=== PATIENT | female | born 1990 | race Caucasian/White ===

== ENCOUNTER 2020-12-18 14:22 | Inpatient (IN) | payer BC ==
[~2020-12-18] VITALS: Ht 160 cm; Wt 72.7 kg
[2020-12-18] MEDS ORDERED: NEWBORN KIT ONE (18:13)
[2020-12-18] MEDS ORDERED: OXYTOCIN 30U/ 0.9% NaCL 500ML 500 ML ONE (18:13)
[2020-12-18] MEDS: SODIUM CHLORIDE FLUSH 10ML SYR IVF SCH (18:20)
[2020-12-18 18:26] VITALS: BP 113/68
[2020-12-18] MEDS ORDERED: FENTANYL PF 100 MCG/2ML IVPush PRN (18:30)
[2020-12-18] MEDS ORDERED: TERBUTALINE 1 MG/ML, 1ML IVPush PRN (18:30)
[2020-12-18] MEDS ORDERED: TERBUTALINE 1 MG/ML, 1ML SQ PRN (18:30)
[2020-12-18] MEDS ORDERED: FENTANYL PF 100 MCG/2ML IV PRN (18:30)
[2020-12-18] MEDS ORDERED: D5%-LACTATED RINGERS 1,000 ML IV SCH (18:30)
[2020-12-18] MEDS ORDERED: ONDANSETRON 2MG/ML, 2ML IVPush PRN (18:30)
[2020-12-18] MEDS ORDERED: METOCLOPRAMIDE 5 MG/ML, 2ML IVPush PRN (18:30)
[2020-12-18] MEDS ORDERED: OXYTOCIN 30U/ 0.9% NaCL 500ML 500 ML IV ONE (18:30)
[2020-12-18] MEDS ORDERED: SODIUM CITRATE/CITRIC ACID 30 ML UDC PO PRN (18:30)
[2020-12-18] MEDS ORDERED: LACTATED RINGERS 1,000 ML IV SCH (18:30)
[2020-12-18] MEDS ORDERED: CALCIUM CARBONATE 500 MG TAB.CHEW PO PRN (18:30)
[2020-12-18 18:39] LABS: BASOPHILS % (AUTO) 0 % (0-1); EOSINOPHILS % (AUTO) 1 % (1-7); LYMPHOCYTES % (AUTO) 22 % (22-44); MEAN CORPUSCULAR HEMOGLOBIN 31.8 pg (27.0-34.8); MEAN CORPUSCULAR HGB CONC 34.2 g/dL (32.4-35.8); MEAN PLATELET VOLUME 9.1 fL (7.4-10.4); MONOCYTES % (AUTO) 8 % (2-9); NEUTROPHILS % (AUTO) 68 % (42-75); PLATELET COUNT 249 x10^3/uL (130-400); RED BLOOD COUNT 3.69 x10^6/uL (3.82-5.3); RED CELL DISTRIBUTION WIDTH 14.7 % (9.6-15.2)
[2020-12-18] MEDS ORDERED: MISOPROSTOL 200 MCG TABLET ONE (20:43)
[2020-12-18] MEDS ORDERED: LIDOCAINE 1%, 20ML ONE (20:43)
[2020-12-18] MEDS: OXYTOCIN 30U/ 0.9% NaCL 500ML 500 ML IV PRN ×2 (21:15→21:27)
[2020-12-19] MEDS ORDERED: BUPIVACAINE 0.25% ONE (03:55)
[2020-12-19] MEDS ORDERED: FENTANYL/BUPIV./NS/PF 250 ML EPIDCONT SCH ×2 (04:00→04:30)
[2020-12-19] MEDS ORDERED: FENTANYL PF 500 MCG, BUPIVACAINE/PF 0.5%, 30ML 62.5 ML in SODIUM CHLORIDE 0.9% 177.5 ML EPIDCONT SCH (04:00)
[2020-12-19] MEDS ORDERED: LACTATED RINGERS 1,000 ML IV SCH (04:30)
[2020-12-19] MEDS ORDERED: EPHEDRINE 50 MG/ML, 1ML IVPush PRN (04:30)
[2020-12-19] MEDS ORDERED: LACTATED RINGERS 1,000 ML IVBOLUS PRN (04:30)
[2020-12-19] MEDS: SODIUM CHLORIDE FLUSH 10ML SYR IVF SCH ×2 (09:00→21:00)
[2020-12-19] MEDS ORDERED: CEFAZOLIN 2,000 MG in SODIUM CHLORIDE 0.9% 50 ML IV STA (09:26)
[2020-12-19] MEDS ORDERED: LIDOCAINE/MPF 2%-EPI 1:200K, 20 ML ONE (09:31)
[2020-12-19] MEDS ORDERED: SIMETHICONE 80 MG CHEW TAB PO PRN (10:00)
[2020-12-19] MEDS ORDERED: OXYcodone IR 5MG TABLET PO PRN (10:00)
[2020-12-19] MEDS ORDERED: ONDANSETRON 2MG/ML, 2ML IV PRN (10:00)
[2020-12-19] MEDS ORDERED: OXYcodone/APAP 5/325MG TABLET PO PRN (10:00)
[2020-12-19] MEDS ORDERED: MISOPROSTOL 200 MCG TABLET PR PRN (10:00)
[2020-12-19] MEDS: OXYTOCIN 30U/ 0.9% NaCL 500ML 500 ML IV SCH ×2 (10:00→20:00)
[2020-12-19] MEDS ORDERED: METHYLERGONOVINE 0.2 MG/ML IM PRN (10:00)
[2020-12-19] MEDS ORDERED: CARBOPROST TROMETHAMINE 250 MCG/ML, 1ML IM PRN (10:00)
[2020-12-19] MEDS ORDERED: ACETAMINOPHEN 325 MG TABLET PO PRN (10:00)
[2020-12-19] MEDS ORDERED: METHYLERGONOVINE 0.2MG TABLET PO ONE (13:30)
[2020-12-19 14:56] LABS: MEAN CORPUSCULAR HEMOGLOBIN 31.7 pg (27.0-34.8); MEAN CORPUSCULAR HGB CONC 34.4 g/dL (32.4-35.8); MEAN PLATELET VOLUME 8.9 fL (7.4-10.4); PLATELET COUNT 214 x10^3/uL (130-400); RED BLOOD COUNT 3.49 x10^6/uL (3.82-5.3); RED CELL DISTRIBUTION WIDTH 14.8 % (9.6-15.2)
[2020-12-19 15:25] LABS: <RBC MORPHOLOGY> NORMAL; BAND#(MANUAL) 2.67 x10^3/uL; BANDS%(MANUAL) 15 % (0-7); LYMPH#(MANUAL) 1.07 x10^3/uL (1-3.4); LYMPHS% (MANUAL) 6 % (22-44); MONOS#(MANUAL) 0.36 x10^3/uL (0.3-2.7); MONOS% (MANUAL) 2 % (2-9); SEG#(MANUAL) 13.71 x10^3/uL (1.8-6.8); SEGS% (MANUAL) 77 % (42-75)
[2020-12-19 15:26] LABS: <PLATELET ESTIMATE> ADEQUATE; <PLT MORPHOLOGY> NORMAL PLT MORPH
[2020-12-19] MEDS ORDERED: FERROUS GLUCONATE 324 MG TABLET PO SCH (17:00)
[2020-12-19] MEDS: IBUPROFEN 600 MG TABLET PO PRN ×2 (17:11→23:00)
[2020-12-19 17:15] VITALS: BP 114/70
[2020-12-19 20:00] VITALS: BP 115/74
[2020-12-19] MEDS: DOCUSATE 100 MG CAPSULE PO PRN (23:00)
[2020-12-19 23:18] VITALS: BP 108/71
[2020-12-19 23:24] LABS: BASOPHILS % (AUTO) 0 % (0-1); EOSINOPHILS % (AUTO) 0 % (1-7); LYMPHOCYTES % (AUTO) 17 % (22-44); MEAN CORPUSCULAR HEMOGLOBIN 31.4 pg (27.0-34.8); MEAN PLATELET VOLUME 8.9 fL (7.4-10.4); MONOCYTES % (AUTO) 6 % (2-9); NEUTROPHILS % (AUTO) 76 % (42-75); PLATELET COUNT 193 x10^3/uL (130-400); RED BLOOD COUNT 3.14 x10^6/uL (3.82-5.3); RED CELL DISTRIBUTION WIDTH 14.7 % (9.6-15.2)
[2020-12-20 04:30] VITALS: BP 103/69
[2020-12-20] MEDS: OXYTOCIN 30U/ 0.9% NaCL 500ML 500 ML IV SCH (06:00)
[2020-12-20] MEDS ORDERED: PRENATAL VIT/IRON/FA 1 EACH TABLET PO SCH (09:00)
[2020-12-20] MEDS: DOCUSATE 100 MG CAPSULE PO PRN (09:20)
[2020-12-20] MEDS: IBUPROFEN 600 MG TABLET PO PRN (09:20)
[2020-12-20 09:30] VITALS: BP 102/69
[2020-12-20] MEDS: SODIUM CHLORIDE FLUSH 10ML SYR IVF SCH (09:36)
[2020-12-20] MEDS ORDERED: DOCU100C33 PO (10:00)
[2020-12-20] MEDS ORDERED: IBUP-1222 PO (10:01)
[2020-12-20] MEDS ORDERED: FERR324T18 PO (10:01)
[2020-12-20] MEDS ORDERED: PREN1TAB98 PO (10:02)
== END 2020-12-20 14:13 | disposition home or self-care (01) | DRG 797 ==
LOC: EDIP 17:49 → LDIP 18:19 → 2NE 12-19 11:05 → 2NW 12-19 17:36
PROVIDERS: ADMIT Obstetrics & Gynecology Maternal & Fetal Medicine; ATTEND Obstetrics & Gynecology Maternal & Fetal Medicine
PROC: 10E0XZZ Delivery of Products of Conception, External Approach (ICD-10-PCS; principal; 2020-12-19)
PROC: 10D17ZZ Extraction of Products of Conception, Retained, Via Natural or Artificial Opening (ICD-10-PCS; 2020-12-19)
PROC: 0KQM0ZZ Repair Perineum Muscle, Open Approach (ICD-10-PCS; 2020-12-19)
PROC: 10D17Z9 Manual Extraction of Products of Conception, Retained, Via Natural or Artificial Opening (ICD-10-PCS; 2020-12-19)
PROC: 3E0R3BZ Introduction of Anesthetic Agent into Spinal Canal, Percutaneous Approach (ICD-10-PCS; 2020-12-19)
PROC: 00HU33Z Insertion of Infusion Device into Spinal Canal, Percutaneous Approach (ICD-10-PCS; 2020-12-19)
DX: O36.5930 Maternal care for other known or suspected poor fetal growth, third trimester, not applicable or unspecified (principal); O72.2 Delayed and secondary postpartum hemorrhage; Z37.0 Single live birth; Z20.822 Contact with and (suspected) exposure to COVID-19; O99.02 Anemia complicating childbirth; O70.1 Second degree perineal laceration during delivery; Z3A.39 39 weeks gestation of pregnancy; Z90.49 Acquired absence of other specified parts of digestive tract
CPT/HCPCS: 36415; 85025; 86592; 86850; 86900; 86923; 87635; 88307; G0378; J0690; J2590; J7120